=== PATIENT | female | born 1975 | race Caucasian/White ===

== ENCOUNTER 2017-02-14 23:36 | Emergency (ER) | payer OTHER ==
[2017-02-14 23:41] VITALS: TEMP 98.2
[2017-02-14] MEDS ORDERED: IBUPROFEN 600 MG TAB PO ONE (23:54)
[2017-02-14] MEDS ORDERED: HYDROCODONE/APAP 5/325 TAB PO ONE (23:54)
--- NOTE | 2017-02-14 23:55 | EDPHY ---
H & P Time Seen by Provider: 02/14/17 23:49 HPI/ROS: CHIEF COMPLAINT: right shoulder pain HISTORY OF PRESENT ILLNESS: 41-year-old female presents emergency department complaining of right shoulder pain. Patient went to sit in the chair, missed the chair and fell into the wall with her right shoulder. She thinks she struck her head lightly, no loss of consciousness, no neck pain, remembers the entire accident. Patient complains of right clavicle pain, moderate in nature, sharp, worse with movement. No previous injuries to the, no other complaints. REVIEW OF SYSTEMS: A comprehensive 10 point review of systems is otherwise negative aside from elements mentioned in the history of present illness. Smoking Status: Never smoked Physical Exam: GEN: Awake, alert, oriented, no acute distress RESP: nl resp effort, lungs clear to auscultation MSK: Right clavicle with obvious deformity, tenderness to palpation, 2+ radial pulses, sensation intact to light touch, cap refill less than 2 seconds SKIN: No skin tenting, no break in skin Constitutional: Initial Vital Signs Temperature (C) 36.8 C 02/14/17 23:38 Heart Rate 63 02/14/17 23:38 Respiratory Rate 16 02/14/17 23:38 Blood Pressure 140/102 H 02/14/17 23:38 O2 Sat (%) 95 02/14/17 23:38 O2 Delivery Mode Room Air Allergies/Adverse Reactions: No Known Allergies Allergy (Unverified 03/24/15 18:01) Home Medications: Medication Instructions Recorded Hydrocodone/APAP 5/325 [[place] 1 tab PO Q4H PRN #14 tab 02/15/17 5/325] MDM/Departure - MDM Imaging: I viewed and interpreted images myself Medications Given: Discontinued Medications Hydrocodone Bitart/Acetaminophen ([place] 5/325) 1 tab PO EDNOW ONE Stop: 02/14/17 23:55 Last Admin: 02/15/17 00:05 Dose: 1 tab Hydrocodone Bitart/Acetaminophen ([place] 5/325mg Prepack#6) 1 btl TAKEHOME EDNOW ONE Stop: 02/14/17 23:58 Last Admin: 02/15/17 00:06 Dose: 1 btl Ibuprofen (Motrin) 600 mg PO EDNOW ONE Stop: 02/14/17 23:55 Last Admin: 02/15/17 00:07 Dose: 600 mg - Depart Disposition: Home, Routine, Self-Care Clinical Impression: Right clavicle fracture Qualifiers: Encounter type: initial encounter Clavicle location: shaft Fracture type: closed Fracture alignment: displaced Qualified Code(s): S42.021A - Displaced fracture of shaft of right clavicle, initial encounter for closed fracture Condition: Good Instructions: Hydrocodone/Acetaminophen (By mouth), Clavicle Fracture (ED) Additional Instructions: Rest, ice, take 600mg of ibuprofen every 8 hours with food. Take 1 hydrocodone every 4-6 hours as needed for severe pain. Wear sling. Follow up with the orthopedist at first available appointment. Call in the morning to schedule this. Return to the emergency department for worsening symptoms, new symptoms or concerns. Prescriptions: Hydrocodone/APAP 5/325 [[place] 5/325] 1 tab PO Q4H PRN #14 tab PRN Reason: Pain, Moderate Referrals: Gustavo Rawls MD [Medical Doctor] - As per Instructions (Orthopedist data migration lead)
[2017-02-14] MEDS ORDERED: HYDROCOD/APAP 5/325 PREPACK#6 BTL TAKEHOME ONE (23:57)
[2017-02-15 01:17] VITALS: BP 132/99; PULSE 70; RESP 18; O2SAT 94
== END 2017-02-15 01:18 | disposition home or self-care (01) ==
DX: S42.021A Displaced fracture of shaft of right clavicle, initial encounter for closed fracture (principal); W07.XXXA Fall from chair, initial encounter
CPT/HCPCS: A4565

== ENCOUNTER 2017-02-19 08:33 | Day surgery (SDC) | payer OTHER ==
--- NOTE | 2017-02-19 06:51 | PDHPUP ---
History & Physical Update H&P update statement: This history and physical update is based on an assessment of the patient which was completed after admission or registration (within 24 hours), but prior to the surgery/procedure. RRR CTAB
[~2017-02-19 08:33] MED LIST: ceFAZolin 2 GM/DEXTROSE 100 ML IV ONE
[2017-02-19] MEDS ORDERED: LIDOCAINE 1% 300 MG/30 ML SDV ONE (08:35)
[2017-02-19] MEDS ORDERED: BUPIVACAINE 0.5% 30 ML SDV ONE (08:35)
[2017-02-19] MEDS ORDERED: LR 1,000 ML IV ONE (08:44)
[2017-02-19] MEDS ORDERED: LIDOCAINE 1% 2 ML INJ ID PRN (08:44)
[2017-02-19] MEDS ORDERED: MIDAZOLAM 2 MG/2 ML VIAL IVP ONE (10:20)
[2017-02-19] MEDS ORDERED: MIDAZOLAM 2 MG/2 ML VIAL ONE (10:23)
--- NOTE | 2017-02-19 10:25 | PDANEPAE ---
ANE Past Medical History - Cardiovascular History Hx Hypertension: No Hx Arrhythmias: No Hx Chest Pain: No Hx Coronary Artery / Peripheral Vascular Disease: No Hx CHF / Valvular Disease: No Hx Palpitations: No - Pulmonary History Hx COPD: No Hx Asthma/Reactive Airway Disease: Yes Hx Recent Upper Respiratory Infection: No Hx Oxygen in Use at Home: No Hx Sleep Apnea: No Sleep Apnea Screening Result - Last Documented: Negative Pulmonary History Comment: ASTHMA TRIGGERS ENVIRONMENTAL NO INHALER USED FOR 2 YRS - Neurologic History Hx Cerebrovascular Accident: No Hx Seizures: No Hx Dementia: No - Endocrine History Hx Diabetes: No Endocrine History Comment: Nursing currently. Advised to pump & dump twice after anesthesia. - Renal History Hx Renal Disorders: No - Liver History Hx Hepatic Disorders: No - Neurological & Psychiatric Hx Hx Neurological and Psychiatric Disorders: No - Cancer History Hx Cancer: No - Congenital Disorder History Hx Congenital Disorders: No - GI History Hx Gastrointestinal Disorders: No - Other Health History Other Health History: BREAST FEEDING - Chronic Pain History Chronic Pain: No - Surgical History Prior Surgeries: RT OVARIAN CYSTECTOMY 1999. LAMINECTOMY ANE Review of Systems Review of Systems: - Exercise capacity METS (RN): 6 METS ANE Patient History - Allergies Allergies/Adverse Reactions: No Known Allergies Allergy (Unverified 03/24/15 18:01) - Home Medications Home Medications: Herbal Drugs DAILY 02/18/17 [Last Taken 02/12/17] IBUPROFEN PRN 02/18/17 [Last Taken 02/18/17] - NPO status NPO Since - Liquids (Date): 02/19/17 NPO Since - Liquids (Time): 06:00 NPO Since - Solids (Date): 02/19/17 NPO Since - Solids (Time): 18:00 - Anes Hx Anes Hx: no prior problems - Smoking Hx Smoking Status: Never smoked ANE Labs/Vital Signs - Vital Signs Blood Pressure: 124/89 Heart Rate: 58 Respiratory Rate: 16 O2 Sat (%): 94 Height: 173.99 cm Weight: 79.379 kg ANE Physical Exam - Airway Neck exam: FROM Mallampati Score: Class 2 Mouth exam: normal dental/mouth exam - Pulmonary Pulmonary: no respiratory distress, no rales or rhonchi, clear to auscultation - Cardiovascular Cardiovascular: regular rate and rhythym, no murmur, rub, or gallop - ASA Status ASA Status: II ANE Anesthesia Plan Anesthesia Plan: GA w LMA
[2017-02-19] MEDS ORDERED: fentaNYL 100 MCG/2 ML INJ ONE ×3 (10:28→12:32)
[2017-02-19] MEDS ORDERED: PROPOFOL 200 MG/20 ML VIAL ONE (10:29)
[2017-02-19] MEDS ORDERED: LIDOCAINE 2% 5 ML SDV ONE (10:31)
[2017-02-19] MEDS ORDERED: DEXAMETHASONE 4 MG/ML VIAL ONE ×2 (10:31)
[2017-02-19] MEDS ORDERED: ONDANSETRON 4 MG/2 ML VIAL ONE ×2 (10:31→12:32)
[2017-02-19] MEDS ORDERED: ENALAPRILAT DIHYDRATE 1.25 MG/ML VIAL ONE (11:20)
[2017-02-19] MEDS ORDERED: HYDROCODONE/APAP 5/325 TAB PO PRN (11:32)
[2017-02-19] MEDS ORDERED: OXYCODONE/APAP 5/325 TAB PO PRN (11:32)
[2017-02-19] MEDS ORDERED: ONDANSETRON 4 MG/2 ML VIAL IVP PRN (11:32)
[2017-02-19] MEDS ORDERED: LABETALOL HCL 50 MG/10 ML SYR IVP PRN (11:32)
[2017-02-19] MEDS ORDERED: NALOXONE HCL 0.4 MG/ML INJ IVP PRN (11:32)
[2017-02-19] MEDS ORDERED: PROMETHAZINE HCL 25 MG/ML INJ IVP PRN (11:32)
[2017-02-19] MEDS ORDERED: ENALAPRILAT DIHYDRATE 1.25 MG/ML VIAL IVP PRN (11:32)
[2017-02-19] MEDS ORDERED: LR 500 ML IV PRN (11:32)
[2017-02-19] MEDS ORDERED: ACETAMINOPHEN 500 MG TAB PO PRN (11:32)
[2017-02-19] MEDS ORDERED: MEPERIDINE 25 MG/ML SYR IVP PRN (11:32)
[2017-02-19] MEDS: fentaNYL 100 MCG/2 ML INJ IVP PRN ×2 (12:35→12:48)
[2017-02-19] MEDS ORDERED: HYDROmorphONE/DILAUDID 1 MG/ML INJ ONE (12:40)
[2017-02-19] MEDS: HYDROmorphONE/DILAUDID 1 MG/ML INJ IVP PRN ×3 (12:41→13:22)
--- NOTE | 2017-02-19 12:44 | POSTANESTH ---
Post Anesthetic Evaluation Cardiovascular Status: Similar to Pre-Op Cond Respiratory Status: Normal, Stable, Similar to Pre-op Cond. Level of Consciousness/Mental Status: Can Participate in Eval, Alert and Oriented Pain Control: Inadeq, Add Tx Required Nausea/Vomiting Control: Adequate, Prn Tx Ordered Complications Possibly Related to Anesthesia: None Noted
[2017-02-19] MEDS ORDERED: OXYCODONE/APAP 5/325 TAB ONE (13:13)
[2017-02-19 13:20] VITALS: PULSE 57
--- NOTE | 2017-02-19 16:11 | PDHOMEO2F ---
Home Oxygen Face to Face Home Orders: I certify that a physician or a nurse practitioner or physician's assistant property manager has had a [id number] encounter with this patient on the date of this order due to the diagnosis listed, which relates to the primary reason the patient requires home oxygen. Alternative treatments have been tried, or considered, and deemed ineffective. It is anticipated that supplemental oxygen will result in improvement with treatment. Home oxygen qualifying diagnosis: post-op hypoxia SpO2 on room air (%): 83 Frequency of home oxygen needed: continuous Home oxygen liters per minute: 2 Home oxygen delivery device: nasal cannula Concentrator: No E-tanks for mobility and back up: No If ordering portable O2, is the patient mobile in the home?: Yes I certify that, based on these findings, the home oxygen is medically necessary for this patient for the following length of time. Length of time home oxygen needed: 1 week
[2017-02-19 16:35] VITALS: BP 123/89; RESP 16; O2SAT 95
[2017-02-19 17:28] VITALS: TEMP 98.1
--- NOTE | 2017-02-20 05:27 | GOP ---
[f rep st] OPERATIVE REPORT PATIENT: VICKI RANDHAWA DATE OF SERVICE: 02/19/17 PATIENT DATE OF : 1975 SURGEON: Mikey Newberry M.D. DEPUTY FELONY CLERK: Trina Rawls PA-C Mrs. Carrasquillo assistance was medically necessary for patient positioning and the retraction of vital structures. ANESTHESIA: General / regional anesthesia by surgeon PRE-OPERATIVE DIAGNOSES: Right clavicle fracture (ICD-10 code S42.009A closed clavicle fracture) POST-OPERATIVE DIAGNOSES: Right clavicle fracture (ICD-10 code S42.009A closed clavicle fracture) OPERATIVE PROCEDURES: CPT code 28798 -- Right clavicle open reduction and internal fixation CPT code 20697 -- Fluoroscopy by surgeon, up to one hour EBL: 2cc COMPLICATIONS: None TOURNIQUET TIME: Not applicable IMPLANTS: Synthes eight hole 3.5mm LCDC superior clavicle plate was utilized with a combination of 3.5mm locking and non-locking screws BRIEF CLINICAL NOTE: This is a very pleasant 41 year old female with a significant history for a complete and displaced right clavicle fracture. As such, I discussed the risks, benefits, alternatives, and complications associated with both non-operative (specifically, sling and restricted weight bearing) and operative (specifically, right clavicle open reduction and internal fixation) forms of treatment. The patient fully understood the risks, benefits, alternatives, and complications associated with both forms of treatment and wished to proceed with operative intervention as outlined above. The patient signed the informed consent form for surgery. OPERATIVE NOTE: On the day of surgery, all of the patients questions were answered. The patient was then transferred from the pre-operative area into the operating room and a formal, Time-Out procedure was performed. The patient was identified by name, medical record number, social security number, and date of . In addition, the patients right upper extremity was identified as the correct portion of the patients body for surgery with the patients clavicle being identified as the correct portion of that extremity for surgery. The anesthesia team administered pre-operative antibiotics for prophylaxis. The patient was then placed into the beach chair position and the extremity was then prepped and draped in the normal sterile fashion. A sterile marking pen was then utilized to monty out a curvilinear incision overlying the jeanna-superior aspect of the clavicle. A #15 blade was then used to incise the skin. Meticulous hemostasis was obtained in the subcutaneous plane. Several crossing supraclavicular nerve branches were identified and protected. The platysma was then incised to expose the underlying clavicle fracture. The fracture hematoma was irrigated and debrided. There were three butterfly segments between the medial and lateral segments. As such, a Synthes eight-hole 3.5mm LCDC superior clavicle plate was selected and was applied to the dorsal aspect of the medial segment. One 3.5mm fully threaded cortical screw was inserted through the medial segment. The plate was then utilized as a reduction tool to bring the clavicle back out to length. A second 3.5mm fully threaded cortical screw was then inserted through the lateral end of the plate into the lateral segment to obtain preliminary fixation. The three intervening butterfly segments were then reduced underneath the plate. Two additional screws were then placed through the lateral end of the plate (one locking screw and one non-locking screw) and two additional screws were placed through the medial end of the plate (both non- locking screws). The butterly segments were then fixed to each other with a 3.5mm fully threaded cortical screw which was inserted with lag screw technique. Final anterior-posterior and superior-inferior C-arm images were obtained which demonstrated excellent anatomic reduction at the site of the fractures as well as appropriate implant positioning and length in all views. These images were printed and saved. The wound was then copiously irrigated with sterile normal saline. The platysma was re-approximated utilizing 2-0 Vicryl sutures. The subcutaneous plane was re-approximated with 3-0 Vicryl sutures and the skin was re- approximated with a running 4-0 Monocryl subcuticular stitch. The skin was then cleaned with sterile normal saline and dried. Dermabond was then applied to the incision. A mixture of 1% lidocaine and 0.5% Marcaine was then utilized to provide local anesthesia at the operative site. A Xeroform gauze dressing was then applied, followed by a dry sterile dressing, and an occlusive tegaderm dressing. The patient was then reversed from anesthesia and transferred from the operating room table onto the post-operative gurney and transferred from the operating room to the post-anesthesia care unit in stable condition. POSTOPERATIVE PLAN: The patient will remain in the current dressing and sling for the next 2 weeks. The patient will follow-up in 2 weeks for repeat evaluation. /[id number]/MODL MTDD
== END 2017-02-19 17:22 | disposition home or self-care (01) ==
LOC: FSGY 08:33
PROVIDERS: ATTEND Orthopaedic Surgery Hand Surgery
PROC: 0PS904Z Reposition Right Clavicle with Internal Fixation Device, Open Approach (ICD-10-PCS; principal; 2017-02-19 10:00)
DX: S42.021A Displaced fracture of shaft of right clavicle, initial encounter for closed fracture (principal); W07.XXXA Fall from chair, initial encounter; Y99.9 Unspecified external cause status
CPT/HCPCS: C1713; J0690; J1100; J1170; J2250; J2405; J2704; J3010

== ENCOUNTER → 2017-07-16 | Outpatient (CLI) | payer OTHER | LOC: FIMAGING 08:55 | PROVIDERS: ATTEND Physician Assistant | DX: S42.021D Displaced fracture of shaft of right clavicle, subsequent encounter for fracture with routine healing (principal) ==

== ENCOUNTER → 2018-02-21 | Outpatient (CLI) | payer OTHER | LOC: FIMAGING 08:12 | PROVIDERS: ATTEND Physician Assistant | DX: Z00.00 Encounter for general adult medical examination without abnormal findings (principal); Z80.3 Family history of malignant neoplasm of breast ==